=== PATIENT | female | born 1995 | race African-American/Black ===

== ENCOUNTER 2021-03-12 01:20 | Inpatient (IN) | payer OTHER ==
[2021-03-12] MEDS ORDERED: ELECTROLYTE-148 SOLN 1,000 ML IV SCH ×3 (02:30→22:45)
[2021-03-12 02:55] LABS: BASO % 0.4 % (0-2.0); HEMOGLOBIN 9.5 GM/dL (10.7-15.3); LYMPH % 18.5 % (8-40); MCH 27.6 pg (25.7-33.7); MCHC 32.9 g/dl (32.0-36.0); MEAN CELL VOLUME 83.8 fl (80-96); MEAN PLT VOLUME 11.2 fl (7.5-11.1); MONO % 10.3 % (3.8-10.2); NEUT % 69.8 % (42.8-82.8); PLATELET COUNT 225 K/MM3 (134-434); RBC 3.45 M/mm3 (3.60-5.2)
[2021-03-12 02:57] LABS: RETICULOCYTES 2.69 % (0.5-1.5)
[2021-03-12 02:58] VITALS: BMI 48.9
[2021-03-12 03:03] LABS: INR 0.97 (0.83-1.09); PROTHROMBIN TIME (PATIENT) 11.8 SEC (9.7-13.0)
[2021-03-12 03:05] LABS: ACTIVATED PTT 25.8 SECONDS (25.2-36.5)
[2021-03-12 03:11] LABS: SGOT/AST 10 U/L (15-37)
[2021-03-12 03:17] LABS: BLOOD UREA NITROGEN 5.1 mg/dL (7-18); CALCIUM 9.1 mg/dL (8.5-10.1)
[2021-03-12 03:20] LABS: CREATININE 0.6 mg/dL (0.55-1.3)
[2021-03-12 04:13] LABS: HIV INTERPRETATION NEGATIVE (NEGATIVE)
[2021-03-12] MEDS ORDERED: AMPICILLIN SODIUM 2 GM VIAL IVPB ONE (06:00)
[2021-03-12] MEDS ORDERED: AMPICILLIN SODIUM 2 GM VIAL ONE (06:05)
[2021-03-12 08:15] LABS: EPI CELLS >36 /uL (0-25.1); HYALINE CASTS 31 /uL (0-3.1); URINE APPEARANCE CLOUDY; URINE BACTERIA 1421 /uL (0-1359); URINE BILIRUBIN NEGATIVE (NEGATIVE); URINE COLOR YELLOW; URINE GLUCOSE (UA) NEGATIVE (NEGATIVE); URINE KETONE TRACE (NEGATIVE); URINE LEUK ESTERASE 2+ (NEGATIVE); URINE NITRITE NEGATIVE (NEGATIVE); URINE PROTEIN TRACE (NEGATIVE); URINE WBC 314 /uL (0-25.8)
[2021-03-12 08:41] LABS: URINE RBC 98.2 /uL (0-23.9)
[2021-03-12] MEDS ORDERED: OXYTOCIN 30 UNITS in 0.9% NS 30 UNIT/500 ML INFUS.BAG IVPB ONE (09:19)
[2021-03-12] MEDS ORDERED: AMPICILLIN SODIUM 1 GM VIAL ONE ×4 (09:20→21:29)
[2021-03-12] MEDS: AMPICILLIN SODIUM 1 GM VIAL IVPB SCH ×4 (09:30→22:00)
[2021-03-12] MEDS ORDERED: PROMETHAZINE HCL 25 MG/1 ML VIAL IVPB ONE (10:17)
[2021-03-12] MEDS ORDERED: BUTORPHANOL TARTRATE 1 MG/ML VIAL IVPB ONE (10:17)
[2021-03-12] MEDS ORDERED: OXYTOCIN 30 UNITS in 0.9% NS 30 UNIT/500 ML INFUS.BAG IVPB SCH (10:30)
[2021-03-12 18:13] LABS: GAMMA GLUTAMYL TRANSPEPTIDASE 8 U/L (5-85)
[2021-03-12] MEDS ORDERED: ONDANSETRON 4 MG/2 ML VIAL IVPUSH PRN (22:13)
[2021-03-12] MEDS ORDERED: morphine SULFATE/PF 0.5 MG/ML (2cc Syringe - QUVA) ONE (22:20)
[2021-03-12] MEDS ORDERED: CITRIC ACID/SODIUM CITRATE 30 ML UNIT-DOSE CUP PO ONE (22:31)
[2021-03-12] MEDS ORDERED: ceFAZolin SODIUM 1 GM VIAL ONE (22:53)
[2021-03-12] MEDS ORDERED: ONDANSETRON 4 MG/2 ML VIAL ONE ×2 (23:01→23:21)
[2021-03-12] MEDS ORDERED: OXYTOCIN 10 UNITS/ML VIAL ONE ×2 (23:05→23:21)
[2021-03-13] MEDS ORDERED: METHYLERGONOVINE MALEATE 0.2 MG/1 ML AMP IM PRN (00:36)
[2021-03-13] MEDS ORDERED: oxyCODONE HCL 5 MG TABLET PO PRN ×2 (00:36)
[2021-03-13] MEDS ORDERED: SENNOSIDES/DOCUSATE COMBO (SENNA PLUS) TABLET (UD) PO PRN (00:36)
[2021-03-13] MEDS: IBUPROFEN 800 MG/8 ML IJ IVPB PRN ×2 (02:33→09:07)
[2021-03-13 08:45] LABS: BASO % 0.2 % (0-2.0); EOS % 0.2 % (0-4.5); HEMATOCRIT 24.6 % (32.4-45.2); HEMOGLOBIN 7.9 GM/dL (10.7-15.3); LYMPH % 12.6 % (8-40); MCH 26.9 pg (25.7-33.7); MEAN PLT VOLUME 11.4 fl (7.5-11.1); MONO % 7.7 % (3.8-10.2); NEUT % 79.3 % (42.8-82.8); PLATELET COUNT 203 K/MM3 (134-434); RBC 2.92 M/mm3 (3.60-5.2); RDW 16.1 % (11.6-15.6); WHITE BLOOD COUNT 12.6 K/mm3 (4.0-10.0)
[2021-03-13] MEDS: PRENATAL VITAMINS W/ FOLIC ACID TABLET (FP) PO SCH (09:31)
[2021-03-13] MEDS ORDERED: DIPHTH,PERTUSS(ACELL),TET 0.5 ML DISP.SYRIN IM ONE (10:00)
[2021-03-13] MEDS: ACETAMINOPHEN 325 MG TABLET (FP) PO PRN ×2 (18:23→22:36)
[2021-03-13] MEDS: SIMETHICONE 80 MG TAB.CHEW (FP) PO PRN ×2 (18:23→22:36)
[2021-03-13] MEDS: IBUPROFEN 600 MG TABLET (FP) PO PRN ×2 (18:23→22:35)
[2021-03-14] MEDS ORDERED: BISACODYL 10 MG SUPP.RECT RC PRN (00:36)
[2021-03-14] MEDS: ACETAMINOPHEN 325 MG TABLET (FP) PO PRN ×3 (02:26→19:50)
[2021-03-14] MEDS: IBUPROFEN 600 MG TABLET (FP) PO PRN ×3 (02:26→19:52)
[2021-03-14] MEDS: PRENATAL VITAMINS W/ FOLIC ACID TABLET (FP) PO SCH (09:15)
[2021-03-14] MEDS: SIMETHICONE 80 MG TAB.CHEW (FP) PO PRN (19:51)
[2021-03-15] MEDS: PRENATAL VITAMINS W/ FOLIC ACID TABLET (FP) PO SCH (09:16)
[2021-03-15 09:17] VITALS: BP 129/80; PULSE 113; TEMP 98.7
[2021-03-15] MEDS: IBUPROFEN 600 MG TABLET (FP) PO PRN (10:26)
[2021-03-15] MEDS: ACETAMINOPHEN 325 MG TABLET (FP) PO PRN (10:26)
[2021-03-15] MEDS: SIMETHICONE 80 MG TAB.CHEW (FP) PO PRN (10:26)
== END 2021-03-15 12:45 | disposition home or self-care (01) | DRG 540 ==
LOC: JLDR 01:20 → J3W 03-13 02:21
PROVIDERS: ADMIT Obstetrics & Gynecology; ATTEND Obstetrics & Gynecology
PROC: 3E033VJ Introduction of Other Hormone into Peripheral Vein, Percutaneous Approach (ICD-10-PCS; principal; 2021-03-12)
PROC: 10D00Z1 Extraction of Products of Conception, Low, Open Approach (ICD-10-PCS; 2021-03-12)
DX: O42.92 Full-term premature rupture of membranes, unspecified as to length of time between rupture and onset of labor (principal); O62.2 Other uterine inertia; O99.214 Obesity complicating childbirth; E66.01 Morbid (severe) obesity due to excess calories; Z3A.39 39 weeks gestation of pregnancy; Z37.0 Single live birth
CPT/HCPCS: 36415; 80048; 81003; 82977; 83010; 84450; 84460; 84550; 85025; 85032; 85045; 85610; 85730; 86780; 86850; 86900; 86901; 87389; 88307-TC; 90715; C9803; U0003; U0005